=== PATIENT | female | born 1980 | race Caucasian/White ===

== ENCOUNTER → 2025-02-19 | Outpatient (CLI) | payer OTHER, SELFPAY ==
[2025-02-19 10:24] LABS: Absolute Lymphocyte Count 1.34 X10^3/uL (0.83-4.51); Absolute Neutrophil Count 3.7 X10^3/uL (2.0-7.7); Basophil# 0.05 X10^3/uL; Basophil% 0.9 % (0-1); Eosinophil# 0.12 X10^3/uL; Eosinophils% 2.2 % (0-5); Hematocrit 40.8 % (37-47); Hemoglobin 13.8 g/dL (12.0-15.0); Lymphocyte # 1.34 X10^3/ul (0.83-4.51); Lymphocyte % 24.3 % (19-41); Mean Corp Hgb Conc 33.8 g/dL (32-36); Mean Corpuscular Hgb 30.1 pg (27.0-32.0); Mean Corpuscular Volume 88.9 fL (81-99); Mean Platelet Vol. 10.8 fl (6.2-12.0); Monocyte# 0.32 X10^3/uL; Monocyte% 5.8 % (0-10); NRBC Flagged by Analyzer 0 % (0-5); Neutrophil # 3.67 X10^3/uL (2.7-7.7); Neutrophil % 66.6 % (47-70); Platelet Count 327 K/mm3 (150-450); RBC Distribution Width CV 12.9 % (11.6-14.6); RBC Distribution Width SD 42.2 fl (35.1-43.9); Red Blood Count 4.59 M/mm3 (4.2-5.4); White Blood Count 5.5 K/mm3 (4.4-11.0)
[2025-02-19 12:45] LABS: ALB/GLOB Ratio 1.5 RATIO (0.9-2.4); AST(SGOT) 19 U/L (<=31); Alanine Aminotransfer ALT/SGPT 12 U/L (<=34); Albumin, Serum 4.4 g/dL (3.5-5.0); Alkaline Phosphatase 70 U/L (35-104); Anion Gap 12 (5-15); BUN 16 mg/dL (4-19); CRP < 3.00 mg/L (0.0-3.0); Calcium,Total 9.3 mg/dL (7.6-11.0); Carbon Dioxide 22.5 mmol/L (21.0-32.0); Chloride 106 mmol/L (98-108); Creatinine, Serum 0.68 mg/dL (0.70-1.20); EST Glomerular Filtration Rate 111 (>60); Globulin 2.9 g/dL (2.2-4.2); Glucose 87 mg/dL (70-99); Potassium 3.8 mmol/L (3.3-5.1); Protein, Total 7.3 g/dL (5.9-8.4); Sodium Level 140 mmol/L (133-145)
[2025-02-19 12:59] LABS: LDH 132 U/L (84-246)
== END | disposition home or self-care (01) ==
PROVIDERS: PCP Nurse Practitioner Adult Health
DX: R10.9 Unspecified abdominal pain (principal); K58.0 Irritable bowel syndrome with diarrhea; K62.5 Hemorrhage of anus and rectum
CPT/HCPCS: 36415; 80053; 82784; 82785; 83516; 83615; 84443; 85025; 86003; 86005; 86036; 86037; 86140; 86225; 86235; 86255; 86671

== ENCOUNTER → 2025-03-05 | Outpatient (CLI) | payer OTHER, SELFPAY ==
--- NOTE | 2025-03-05 10:55 | CT_ITS ---
PROCEDURE: ABDOMEN/PELVIS WITH CONTRAST 03/05/2025 REASON FOR EXAM: ABDOMINAL PAIN TECHNIQUE: Multiple contiguous axial images through the abdomen and pelvis were obtained after the administration of intravenous contrast. Two-dimensional coronal and sagittal reformatted images were reconstructed. Low-dose imaging technique was utilized. COMPARISON: None FINDINGS: Lung bases are clear. Liver, spleen, pancreas and adrenal glands are intact. Gallbladder is satisfactory. No significant biliary ductal dilation. Kidneys enhance symmetrically. No suspicious renal mass, calculi or hydronephrosis. Urinary bladder is intact. No bowel obstruction, focal bowel wall thickening or significant perienteric inflammation. Normal appendix. No pelvic free fluid. No free air. No abdominal aortic aneurysm or suspicious adenopathy. Superficial soft tissues are intact. No acute osseous abnormality. 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 Transitional lumbosacral anatomy. CT/Abdomen/Pelvis WITH Contrast IMPRESSION: No acute process. Reading Location: [facility]
== END | disposition home or self-care (01) ==
LOC: CT 10:44
PROVIDERS: PCP Nurse Practitioner Adult Health
DX: R10.9 Unspecified abdominal pain (principal); K58.0 Irritable bowel syndrome with diarrhea; K62.5 Hemorrhage of anus and rectum
CPT/HCPCS: 74177; Q9967

== ENCOUNTER 2025-04-29 10:08 | Day surgery (SDC) | payer OTHER, SELFPAY ==
[2025-04-29] VITALS (8 sets, daily range): BP systolic 92–110; BP diastolic 59–66; PULSE 61–78; RESP 16–18; TEMP 36.1–36.7; O2SAT 95–100; BMI 27.7
[2025-04-29] MEDS: Lactated Ringers 1,000 ML 15 ML IV (10:39)
--- NOTE | 2025-04-29 10:55 | PCM.PRE.AN2 ---
ASA Classification* ASA Classification ASA Classification: 2 Assessment & Plan Anesthesia* Anesthesia Assessment Anesthesia Assessment: Discussed sedation and/or anesthesia options, risks, benefits, and alternatives with patient/parents/legal guardian/POA. Questions invited. The patient/parents/legal guardian/POA seems to understand and agrees to proceed with anesthesia plan. Reviewed the physical assessment, medical history, allergy history and patient home medications list prior to surgery/procedure/anesthetic and documented any changes. Performed airway and anesthesia risk assessments. Anesthesia Type Anesthesia Type: General History Source History Obtained from:: Patient and Chart Anesthesia Focused Assessment* Temperature: 98.0 F Pulse Rate: 66 Blood Pressure: 110/59 Respiratory Rate: 18 Pulse Ox: 98 Oxygen Delivery Method: Room Air Airway Assessment Mouth opens: >3 cm Mallampati Score: II Teeth Condition: Intact Neck Range of motion (ROM): Full ROM Focused Labs Anesthesia Preop lab: CBC WBC 5.5 K/mm3 (4.4-11.0) 02/19/25 09:12 02/19/25 RBC 4.59 M/mm3 (4.2-5.4) 02/19/25 09:12 02/19/25 Hgb 13.8 g/dL (12.0-15.0) 02/19/25 09:12 02/19/25 Hct 40.8 % (37-47) 02/19/25 09:12 02/19/25 Plt Count 327 K/mm3 (150-450) 02/19/25 09:12 02/19/25 CHEMISTRY Potassium 3.8 mmol/L (3.3-5.1) 02/19/25 09:12 02/19/25 Sodium 140 mmol/L (133-145) 02/19/25 09:12 02/19/25 BUN 16 mg/dL (4-19) 02/19/25 09:12 02/19/25 Creatinine 0.68 mg/dL (0.70-1.20) L 02/19/25 09:12 02/19/25 Glucose 87 mg/dL (70-99) 02/19/25 09:12 02/19/25 TSH 1.510 uIU/mL (0.300-4.200) 02/19/25 09:12 02/19/25 COAG Pre-Assessment Diagnosis/Proposed Procedure Planned Operative Procedure(s): COLONOSCOPY Anesthesia History Anesthesia History - cardiology tech: Anesthesia History - cardiology tech Hx Hospitalization No 04/28/25 09:50 Any Problems With Anesthesia No 04/28/25 09:50 Cholinesterase deficiency No 04/28/25 09:50 You/Your Family Experience No 04/28/25 09:50 fever (hyperthermia) with Relationship Recent Exposure to Contagious No 04/29/25 10:28 Disease Does patient have nerve No 04/28/25 09:50 stimulator Patient instructed to have device shut off --Does patient have Pacemaker or ICD? When Was Last Pacemaker Check QUESTION #4 FULL TEXT: You/Your Family Experience fever (hyperthermia) with Anesthesia Last Oral Intake Last Oral intake: Last Oral Intake NPO since 07:30 04/29/25 10:28 Meds taken in AM with sips of No 04/29/25 10:28 water? Meds patient instructed to take am of surgery PONV PONV - cardiology tech: PONV - cardiology tech Female Yes 04/28/25 09:50 HX of Motion Sickness Yes 04/28/25 09:50 HX of N/V After Surgery No 04/28/25 09:50 Non-Smoker Yes 04/28/25 09:50 Duration of Surgery greater No 04/28/25 09:50 than 60 minutes Number of Risk Factors 3 04/28/25 09:50 PONV Score Moderate Risk 04/28/25 09:50 Height & Weight Height & Weight: Anesthesia: Height & Weight Height 5 ft 3 in 04/29/25 10:28 Weight: 71 kg 04/29/25 10:28 Body Mass Index (BMI) 27.7 04/29/25 10:28 Respiratory Assessment Respiratory Assessment - cardiology tech: Respiratory Tract Infection Hx - cardiology tech Hx Respiratory Tract Infection No 04/28/25 09:50 STOP Sleep Apnea STOP Sleep Apnea - cardiology tech: STOP Sleep Apnea - cardiology tech Hx Hypertension No 04/28/25 09:50 Hx Sleep Apnea No 04/28/25 09:50 CPAP BIPAP Do you snore loudly (louder No 04/28/25 09:50 than talking or can be heard Do you often feel tired/ No 04/28/25 09:50 fatigued/ sleepy during daytime? Has anyone observed you stop No 04/28/25 09:50 breathing during sleep? STOP Results Negative 04/28/25 09:50 QUESTION #5 FULL TEXT : Do you snore loudly (louder than talking or can be heard through closed doors)? Tobacco Use History Tobacco Use History - cardiology tech: Tobacco Use History - cardiology tech Tobacco Use Smoking Status Former smoker 04/28/25 09:50 Hx Tobacco Use No 04/28/25 09:50 Years Smoking Packs Smoked per Day Smoking Cessation Date was Yes - quit smoking within 15 04/28/25 09:50 within the last 15 years years Hx Smoking Cessation Date Hx Smoking Cessation Counseling Hematologic Medial History Hematologic Hx - cardiology tech: Hematologic Medical Hx - media assistant Hx of Blood Transfusion No 04/28/25 09:50 Hx of Transfusion in last 3 No 04/28/25 09:50 Months Date of Last Transfusion (if within last 3 months) Ever experience any problems No 04/28/25 09:50 with transfusion(s)? Specify any problems Hx of Preganancy in last 3 No 04/28/25 09:50 Months Nurse Filling Out Transfusion VCHRISTIN 04/28/25 09:50 & Questions: Date: 04/28/25 04/28/25 09:50 Time: 09:51 04/28/25 09:50 Patient unable to answer at this time (ie. confused, unrespo /Reproduction History /Reproductive History - cardiology tech: /Reproductive Hx- cardiology tech Hx Now No 04/28/25 09:50 Gestational Age (in weeks): EDC: Hx Hx Para Hx Section SAB No 04/28/25 09:50 Active Medications Active Medications: Current Medications Generic Name Dose Route Start Last Admin Trade Name Freq PRN Reason Stop Dose Admin Lactated Ringer's 1,000 mls @ 15 mls/hr 04/29/25 10:30 04/29/25 10:39 IV 15 mls/hr .Q48H PARVEEN Administration PFSH Medical History (Updated 04/28/25 @ 09:50 by Sita Rosenberg) Wears glasses Depression Anxiety History of steroid therapy Back pain Injury of head and neck Loss of consciousness History of IBS Gastric reflux Former smoker Asthma History of bronchitis Urinary incontinence Urge urinary incontinence Migraine headache Anxiety and depression Home Medications ?Medication ?Instructions ?Recorded ?Last Taken ?Type albuterol sulfate 90 mcg/actuation 2 puff inhalation Q6H PRN 02/01/22 Unknown History aerosol inhaler shortness of breath or wheezing levalbuterol HCl 0.63 mg/3 mL 0.63 mg inhalation ONCE PRN 02/01/22 Unknown History solution for nebulization (Xopenex) shortness of breath or wheezing fluticasone 250 mcg-salmeterol 50 1 inh inhalation BID 02/18/25 04/29/25 History mcg/dose blistr powdr for inhalation montelukast 10 mg tablet 10 mg PO QDAY PRN ALLERGIES 02/18/25 Unknown History prednisone 50 mg tablet 50 mg PO ONCE iodine contrast 02/19/25 Unknown Rx allergy #3 tabs Allergy/AdvReac Type Severity Reaction Status Date / Time Iodinated Contrast Media Allergy Intermediate Other Verified 04/29/25 10:26 ethiodized oil (From AdvReac Severe Abdominal Verified 04/29/25 10:26 Lipiodol) Pain, Nauesa, Wheezing Family History Mother Diabetes Heart disease Kidney disease Hypertension GI disease Father HLD (hyperlipidemia) Kidney disease High cholesterol Brother Asthma Hypertension Kidney disease GI disease Grandfather Kidney disease Grandmother Heart disease Myocardial infarction Surgical History History of hand surgery Hx of cone biopsy of cervix H/O LEEP H/O: hysterectomy Social History Smoking Status: Former smoker pack-years: 20 Tobacco: How many years used: 20 Electronic Cigarette Use: not used how long ago did patient quit smokin year second hand exposure: No alcohol intake: never substance use type: does not use Review of Systems (Anesthesia) ROS Narrative System reviewed and no additional complaints, except as documented. Physical Exam Const alert, oriented x3 and average body habitus Resp normal respiratory effort, normal air movement and clear to auscultation bilaterally Cardio regular rate, regular rhythm, no murmurs and diaphoretic
--- NOTE | 2025-04-29 11:15 | COLBX_PTH ---
PATIENT: LAURA HALE LOC: EN U#:[id number] AGE/SX: 44/F ROOM: RE04/29/[address]: Dr. Chris Garcia DO : 1980 BED: DIS: 04/29/2025 SPEC #: [id number] RECD: 04/29/25 18:18 STATUS: DRAKE REMinnie #: [id number] ALBINA: 04/29/25 11:[address]: Chris Garcia DEPT: SURGICAL PATHOLOGY RECD BY: Kurt Jeffers ENTERED: 04/30/25 08:34 SP TYPE: COLON BX OTHR DR: KYLE KIRKPATRICK Tissues: A - Ileum, NOS B - COLON BIOPSY Procedures: Surgery Specimen Level IV HEADER OPERATION: Colonoscopy, biopsy PRE-OP DIAGNOSIS: Abdominal pain, irritable bowel syndrome, rectal bleeding TISSUE SUBMITTED: A- Terminal ileum biopsy, B- Random colonic biopsy MICROSCOPIC DIAGNOSIS A. Small bowel, terminal ileum, biopsy: Normal villous morphology with no specific pathologic change. Negative for increased intraepithelial lymphocytes. B. Colon, random, biopsy: No specific pathologic change. The histologic features of microscopic colitis are not demonstrated. MICROSCOPIC DESCRIPTION Slides are reviewed. GROSS DESCRIPTION A. Received in formalin in a container labeled with the patient's name, date of , and terminal ileum biopsy are multiple treviño-pink fragments of mucosal tissue measuring 0.6 x 0.5 x 0.2 cm in aggregate. Submitted in toto in A1. B. Received in formalin in a container labeled with the patient's name, date of , and random colonic biopsy are multiple treviño-pink fragments of mucosal tissue measuring 1.3 x 0.5 x 0.2 cm in aggregate. Submitted in toto in B1. [facility] 04-30-2025 CPT:26756c1
--- NOTE | 2025-04-29 11:31 | HP.PCM_ITS ---
HPI - General General Date of Service: 04/29/25 Chief Complaint: diarrhea HPI Narrative LAURA HALE, is a 44 F who presents for IBS-D, rectal bleeding. Her last colonoscopy was 8 to 10yrs ago. Mother had some type of colitis that resolved after she had children. Former tobacco use, rare ETOH use, never illicit drug use or marijuana. PCP gave prescription for Augmentin on 02/08/25 x10d for diverticulitis. She states that she has an IBS flare every 10 years. This episode started with abdominal pain in the RLQ that would travel across her abdomen as food was processed. She began to see bright red blood, at first only with wiping, then the volume increased so that it was dripping from her rectum into the toilet water. She states that she knows she's had internal and external hemorrhoids with prior episodes of bleeding. She reports that most of her abdominal pain and over half of the blood she was seeing in her stool was noted by day 5 of the antibiotic. For the duration of the abdominal pain, she reports her stools as thin and watery and occurring 1 to 8 times a day. Now the stool is very soft but not watery. She reports bloating and cramping with slightly more than normal amounts of flatus. She denies difficulty chewing and swallowing, reflux, throat clearing, cough, nausea, vomiting, constipation, and melena. She's tried increasing fiber intake, doing a bland diet, adding a probiotic and not much has helped. She reports that Bentyl does help with the abdominal pain and cramping. She denies recent change in water source, she drinks mostly bottled water, and no exposure to livestock. [facility] Medical History Wears glasses Depression Anxiety History of steroid therapy Back pain Injury of head and neck Loss of consciousness History of IBS Gastric reflux Former smoker Asthma History of bronchitis Urinary incontinence Urge urinary incontinence Migraine headache Anxiety and depression Home Medications ?Medication ?Instructions ?Recorded ?Last Taken ?Type albuterol sulfate 90 mcg/actuation 2 puff inhalation Q 6H PRN 02/01/22 Unknown History aerosol inhaler shortness of breath or wheez ing levalbuterol HCl 0.63 mg/3 mL 0.63 mg inhalation ONCE PRN 02/01/22 Unknown History solution for nebulization (Xopenex) shortness of breat h or wheezing fluticasone 250 mcg-salmeterol 50 1 inh inhalation BID 02/18/25 04/29/25 History mcg/dose blistr powdr for inhalation montelukast 10 mg tablet 10 mg PO QDAY PRN ALLERGIES 02/18/25 Unknown History prednisone 50 mg tablet 50 mg PO ONCE iodine contras t 02/19/25 Unknown Rx allergy #3 tabs Allergy/AdvReac Type Severity Reaction Status Date / Time Iodinated Contrast Media Allergy Intermediate Other Verified 04/29/25 10:26 ethiodized oil (From AdvReac Severe Abdominal Verified 04/29/25 10:26 Lipiodol) Pain, Nauesa, Wheezing Family History Mother Diabetes Heart disease Kidney disease Hypertension GI disease Father HLD (hyperlipidemia) Kidney disease High cholesterol Brother Asthma Hypertension Kidney disease GI disease Grandfather Kidney disease Grandmother Heart disease Myocardial infarction Surgical History History of hand surgery Hx of cone biopsy of cervix H/O LEEP H/O: hysterectomy Social History Smoking Status: Former smoker pack-years: 20 Tobacco: How many years used: 20 Electronic Cigarette Use: not used how long ago did patient quit smokin year second hand exposure: No alcohol intake: never substance use type: does not use ROS Constitutional Constitutional: Denies fatigue, fever(s), poor appetite, weight gain or weight loss Gastrointestinal Gastrointestinal: Denies belching, bloating, change in bowel habits, change in stool character, chewing difficulty, coffee ground emesis, constipation, cramping, diarrhea, dyspepsia, dysphagia, early satiety, excessive flatus, fecal incontinence, heartburn, hematemesis, hematochezia, hemorrhoids, loose stools, melena, nausea, odynophagia, rectal bleeding, tenesmus, vomiting or weight changes Vital Signs Vital Signs Vital Signs: 04/29/25 10:28 04/29/25 10:28 04/29/25 10:56 Temperature 98.0 F 98.0 F Temperature Source Temporal Pulse Rate 66 66 Respiratory Rate 18 18 Respiratory Pattern Normal Blood Pressure 110/59 L 110/59 L Blood Pressure Mean 76 Pulse Ox 98 98 Oxygen Delivery Method Room Air Room Air Weight Weight: 156 lb 8.451 oz Body Mass Index (BMI) 27.7 Physical Exam Const alert, oriented x3, no apparent distress and healthy appearing General Appearance: cooperative GI normal to inspection, nondistended, normoactive bowel sounds, soft to palpation, non-tender and non-distended Percussion: normal to percussion Rectal Exam: deferred Assessment & Plan Assessment/Plan (1) Irritable bowel syndrome with diarrhea: (2) Rectal bleeding: (3) Abdominal pain: QUALIFIERS: Abdominal location: generalized Qualified Code(s): R10.84 - Generalized abdominal pain PLAN: Assessment and Plan Assessment and Plan (1) Abdominal pain: Status: Acute Qualifiers: Abdominal location: generalized Qualified Code(s): R10.84 - Generalized abdominal pain (2) Irritable bowel syndrome with diarrhea: Status: Acute (3) Rectal bleeding: Status: Acute Orders: Orders Allergen, Food Profile 14 Today K58.0 - Irritable bowel syndrome with diarrhea, K62.5 - Hemorrhage of anus and rectum, R10.9 - Unspecified abdominal pain TAMIKO Comprehensive Panel Today K58.0 - Irritable bowel syndrome with diarrhea, K62.5 - Hemorrhage of anus and rectum, R10.9 - Unspecified abdominal pain ANCA Today K58.0 - Irritable bowel syndrome with diarrhea, K62.5 - Hemorrhage of anus and rectum, R10.9 - Unspecified abdominal pain Calprotectin, Stool Today K58.0 - Irritable bowel syndrome with diarrhea, K62.5 - Hemorrhage of anus and rectum, R10.9 - Unspecified abdominal pain CBC W/Diff, Automated Today K58.0 - Irritable bowel syndrome with diarrhea, K62.5 - Hemorrhage of anus and rectum, R10.9 - Unspecified abdominal pain CDIFF (PCR) Today K58.0 - Irritable bowel syndrome with diarrhea, K62.5 - Hemorrhage of anus and rectum, R10.9 - Unspecified abdominal pain Celiac Disease Profile Today K58.0 - Irritable bowel syndrome with diarrhea, K62.5 - Hemorrhage of anus and rectum, R10.9 - Unspecified abdominal pain Comprehensive Metabolic Profil Today K58.0 - Irritable bowel syndrome with diarrhea, K62.5 - Hemorrhage of anus and rectum, R10.9 - Unspecified abdominal pain CRP Today K58.0 - Irritable bowel syndrome with diarrhea, K62.5 - Hemorrhage of anus and rectum, R10.9 - Unspecified abdominal pain ENTERIC PATHOGEN PANEL STOOL Today K58.0 - Irritable bowel syndrome with d iarrhea, K58.9 - Irritable bowel syndrome, unspecified, K62.5 - Hemorrhage of anus and rectum, R10.9 - Unspecified abdominal pain Giardia Lamblia, Stool EIA Today K58.0 - Irritable bowel syndrome with diarrhea, K62.5 - Hemorrhage of anus and rectum, R10.9 - Unspecified abdominal pain IBD Expanded Profile Today K58.0 - Irritable bowel syndrome with diarrhea, K62.5 - Hemorrhage of anus and rectum, R10.9 - Unspecified abdominal pain Immunoglobulins G/A/M/E Today K58.0 - Irritable bowel syndrome with diarrhea, K62.5 - Hemorrhage of anus and rectum, R10.9 - Unspecified abdominal pain LDH Today K58.0 - Irritable bowel syndrome with diarrhea, K62.5 - Hemorrhage of anus and rectum, R10.9 - Unspecified abdominal pain Pancreatic Elastase, Fecal Today K58.0 - Irritable bowel syndrome with diarrhea, K62.5 - Hemorrhage of anus and rectum, R10.9 - Unspecified abdominal pain Thyroid Stim Hormone (TSH) Today K58.0 - Irritable bowel syndrome with diarrhea, K62.5 - Hemorrhage of anus and rectum, R10.9 - Unspecified abdominal pain Ova and Parasites [id number] Today K58.0 - Irritable bowel syndrome with diarrhea, K58.9 - Irritable bowel syndrome, unspecified, K62.5 - Hemorrhage of anus and rectum, R10.9 - Unspecified abdominal pain Abdomen/Pelvis WITH Contrast Today K58.0 - Irritable bowel syndrome with diarrhea, K62.5 - Hemorrhage of anus and rectum, R10.9 - Unspecified abdominal pain Medications: New prednisone Take 50mg tablet by mouth 13 hours before scheduled test. Take 50mg tablet by mouth 7 hours before scheduled test. Take 50mg tablet by mouth 1 hour before scheduled test. 50 mg PO ONCE 3 tabs 0RF iodine contrast allergy Plan LAURA HALE, is a 44 F who presents to the office today for establishment with [facility] for IBS-D, rectal bleeding. Differential diagnoses include: IBS-D, IBD, ischemic colitis, celiac, infectious diarrhea. Discussed care plan with her. Reviewed her iodine contrast allergy, she states her reaction was during a hysterosalpingography. She has tolerated prior IV contrast medium, but to be cautious, and to get the best images, we will do a prednisone + antihistamine prep prior to CT scan. * blood for IBD, hormone, inflammation, food allergy markers * stool for inflammatory, enteric, hormone markers * prednisone for iodine contrast prep * schedule colonoscopy * office FU for test results
--- NOTE | 2025-04-29 12:01 | OP.CCLET_ITS ---
04/29/2025 Mavis Iniguez Re : Colonoscopy procedure for Eden Albert This procedure was performed on April. My impressions and recommendations are as follows: Impressions : - Diverticulosis in the recto-sigmoid colon. - Congested mucosa in the sigmoid colon, in the descending colon and at the hepatic flexure. Biopsied. - The examined portion of the ileum was normal. Biopsied. - Non-bleeding hemorrhoids. Recommendations : - Repeat colonoscopy in 5 years for surveillance. - Continue present medications. My findings are described in the full procedure note, which is enclosed. If I can be of further assistance, please feel free to contact me at . Sincerely, Chris Garcia, 04/29/2025 12:00:49 PM This report has been signed electronically.
--- NOTE | 2025-04-29 12:01 | OP.COLON_ITS ---
Patient Name: Eden Tolentino Procedure Date: 04/29/2025 11:29 AM Date of : 1980 Age: 44 Procedure: Colonoscopy Indications: Clinically significant diarrhea of unexplained origin Providers: Chris Garcia DO Referring MD: Mavis Iniguez Medicines: Monitored Anesthesia Care Patient Profile: This is a 44 year old female. Refer to note in patient chart for documentation of history and physical. Last Colonoscopy: none. The patient's first colonoscopy is today. Complications: No immediate complications. Procedure: Pre-Anesthesia Assessment: - Prior to the procedure, a History and Physical was performed, and patient medications and allergies were reviewed. The patient is competent. The risks and benefits of the procedure and the sedation options and risks were discussed with the patient. All questions were answered and informed consent was obtained. Patient identification and proposed procedure were verified by the physician in the pre-procedure area. Mental Status Examination: alert and oriented. Airway Examination: normal oropharyngeal airway and neck mobility. Respiratory Examination: clear to auscultation. CV Examination: normal. Prophylactic Antibiotics: The patient does not require prophylactic antibiotics. Prior Anticoagulants: The patient has taken no anticoagulant or antiplatelet agents. ASA Grade Assessment: II - A patient with mild systemic disease. After reviewing the risks and benefits, the patient was deemed in satisfactory condition to undergo the procedure. The anesthesia plan was to use monitored anesthesia care (MAC). Immediately prior to administration of medications, the patient was re-assessed for adequacy to receive sedatives. The heart rate, respiratory rate, oxygen saturations, blood pressure, adequacy of pulmonary ventilation, and response to care were monitored throughout the procedure. The physical status of the patient was re-assessed after the procedure. After I obtained informed consent, the scope was passed under direct vision. Throughout the procedure, the patient's blood pressure, pulse, and oxygen saturations were monitored continuously. The colonoscope was introduced through the anus and advanced to the terminal ileum. The colonoscopy was performed without difficulty. The patient tolerated the procedure well. The quality of the bowel preparation was adequate. The terminal ileum, ileocecal valve, appendiceal orifice, and rectum were photographed. Scope In: 11:44:24 AM Scope Withdrawal Time 0 hours 6 minutes 29 seconds Scope Out: 11:53:07 AM Total Procedure Duration Time 0 hours 8 minutes 43 seconds Findings: The perianal and digital rectal examinations were normal. A few small-mouthed diverticula were found in the recto-sigmoid colon. An area of mildly congested mucosa was found in the sigmoid colon, in the descending colon and at the hepatic flexure. Biopsies were taken with a cold forceps for histology. Verification of patient identification for the specimen was done. Estimated blood loss: none. The terminal ileum appeared normal. Biopsies were taken with a cold forceps for histology. Verification of patient identification for the specimen was done. Estimated blood loss was minimal. Non-bleeding hemorrhoids were found during retroflexion. The hemorrhoids were Grade II (internal hemorrhoids that prolapse but reduce spontaneously). Impression: - Diverticulosis in the recto-sigmoid colon. - Congested mucosa in the sigmoid colon, in the descending colon and at the hepatic flexure. Biopsied. - The examined portion of the ileum was normal. Biopsied. - Non-bleeding hemorrhoids. Recommendation: - Repeat colonoscopy in 5 years for surveillance. - Continue present medications. Procedure Code(s): --- Professional --- 35689, Colonoscopy, flexible; with biopsy, single or multiple CPT copyright 2021 [employer]. All rights reserved. The codes documented in this report are preliminary and upon emotional support teacher review may be revised to meet current compliance requirements. Chris Garcia DO 04/29/2025 12:00:49 PM This report has been signed electronically. Number of Addenda: 0 Note Initiated On: 04/29/2025 11:29 AM
--- NOTE | 2025-04-29 12:01 | PCM.POST.ANE ---
Anesthesia: Postop Eval I Current Vital Signs Temperature: 97 F Pulse Rate: 77 Blood Pressure: 94/65 Respiratory Rate: 16 Pulse Ox: 98 Assessment Airway patent: Yes Spontaneous unlabored respirations: Yes nausea: No Vomiting: No Anesthesia Complication: No Fluid Hydration Crystalloid volume administer (ml): 400 Total IV fluid infused: 400 Progress Note Anesthesia document: Postop Eval 1 completed: Yes
--- NOTE | 2025-04-29 15:13 | POSTOPAN2_ITS ---
Anesthesia Postop Eval I Sum Postop Eval Completion status Anesthesia document: Postop Eval 1 completed: Yes Anesthesia Postop Eval I Summary Anesthesia Postop Eval I Summary: Anesthesia Postop Eval I: Assessment Summary Airway patent Yes 04/29/25 12:01 ADVERTISING COPY [email or web address] Spontaneous unlabored Yes 04/29/25 12:01 ADVERTISING COPY WRITER.OT respirations Mental status nausea No 04/29/25 12:01 ADVERTISING COPY [email or web address] Vomiting No 04/29/25 12:01 ADVERTISING COPY [email or web address].[email or web address] Anesthesia Postop Eval I: Fluid Summary Crystalloid volume administer 400 04/29/25 12:01 ADVERTISING COPY [email or web address].MDOT (ml) Colloids volume administered ( ml) Blood Product volume administered (ml) Total IV fluid infused 400 04/29/25 12:01 ADVERTISING COPY [email or web address].LILLIAN Anesthesia Postop Eval I: Summary Notes Anesthesia Complication No 04/29/25 12:01 ADVERTISING COPY [email or web address].MDOT Anesthesia Complication Comment: Post-operative progress note Anesthesia: Postop Eval II Evaluation Mental status: Awake Pain Level: 0 nausea: No Vomiting: No Complications Anesthesia Complication: No
--- NOTE | 2025-04-29 15:13 | PCM.POSTANE2 ---
Anesthesia Postop Eval I Sum Postop Eval Completion status Anesthesia document: Postop Eval 1 completed: Yes Anesthesia Postop Eval I Summary Anesthesia Postop Eval I Summary: Anesthesia Postop Eval I: Assessment Summary Airway patent Yes 04/29/25 12:01 MENTAL HEALTH AIDE.[email or web address] Spontaneous unlabored Yes 04/29/25 12:01 MENTAL HEALTH AIDE.OT respirations Mental status nausea No 04/29/25 12:01 MENTAL HEALTH AIDE.MDOT Vomiting No 04/29/25 12:01 MENTAL HEALTH AIDE.MDOT Anesthesia Postop Eval I: Fluid Summary Crystalloid volume administer 400 04/29/25 12:01 MENTAL HEALTH AIDE.MDOT (ml) Colloids volume administered ( ml) Blood Product volume administered (ml) Total IV fluid infused 400 04/29/25 12:01 MENTAL HEALTH AIDE.LILLIAN Anesthesia Postop Eval I: Summary Notes Anesthesia Complication No 04/29/25 12:01 MENTAL HEALTH AIDE.MDOT Anesthesia Complication Comment: Post-operative progress note Anesthesia: Postop Eval II Evaluation Mental status: Awake Pain Level: 0 nausea: No Vomiting: No Complications Anesthesia Complication: No
== END 2025-04-29 12:45 | disposition home or self-care (01) ==
LOC: EN 10:08 → AC 10:10
PROVIDERS: PCP Nurse Practitioner Adult Health; Referring Provider Nurse Practitioner Adult Health; Visit Provider Internal Medicine Gastroenterology
PROC: 0DJD8ZZ Inspection of Lower Intestinal Tract, Via Natural or Artificial Opening Endoscopic (ICD-10-PCS; CPT 45378; principal; 2025-04-29 11:10)
DX: K62.5 Hemorrhage of anus and rectum (principal); Z87.891 Personal history of nicotine dependence; R10.84 Generalized abdominal pain; K57.90 Diverticulosis of intestine, part unspecified, without perforation or abscess without bleeding; K64.1 Second degree hemorrhoids; K58.0 Irritable bowel syndrome with diarrhea; J45.909 Unspecified asthma, uncomplicated; K21.9 Gastro-esophageal reflux disease without esophagitis; Z79.51 Long term (current) use of inhaled steroids
CPT/HCPCS: 45380; 88305